=== PATIENT | female | born 2000 | race Caucasian/White ===

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

== ENCOUNTER 2021-03-26 20:30 | Emergency (ER) | payer OTHER ==
[~2021-03-26] VITALS: Ht 162.6 cm; Wt 81.3 kg
[~2021-03-26 20:30] MED LIST changes: +ULTRAM50 M1 PO
[2021-03-26] MEDS ORDERED: BACTRIM DS1 TAB PO (21:36)
[2021-03-26] MEDS ORDERED: NAPROXEN XX (21:37)
[2021-03-26] MEDS ORDERED: CLINDAMYCIN300 M1 PO (22:26)
[2021-03-26] MEDS ORDERED: PERCOCET 5/325M1 TAB PO (22:26)
[2021-03-26 22:47] VITALS: BP 122/71
== END 2021-03-26 22:47 | disposition home or self-care (01) ==
LOC: ED 20:30
DX: L02.213 Cutaneous abscess of chest wall (principal)

== ENCOUNTER 2021-06-13 14:34 | Emergency (ER) | payer OTHER ==
[~2021-06-13] VITALS: Ht 162.6 cm; Wt 75.0 kg
[~2021-06-13 14:34] MED LIST changes: +BACTRIM DS1 TAB PO; +CLINDAMYCIN300 M1 PO; +NAPROXEN XX; +PERCOCET 5/325M1 TAB PO
[2021-06-13 16:20] LABS: HEMATOCRIT 46.7 % (37.0-47.0); HEMOGLOBIN 15.3 g/dl (12.0-16.0); IMMATURE GRANULOCYTES 0.1 % (0.0-5.0); MEAN CELL VOLUME 81.1 fL CALC (80.0-100.0); MEAN CORPUSCULAR HGB 26.6 pG CALC (26.0-32.0); MEAN CORPUSCULAR HGB CONC 32.8 g/dL CAL (32.0-36.0); NEUT# 5.98 thou/uL (2.00-7.15); RED BLOOD COUNT 5.76 mill/uL (4.20-5.60); RED CELL DISTRI WIDTH 12.6 % (11.5-15.5)
[2021-06-13 16:35] LABS: ALKALINE PHOSPHATASE 67 u/l (38-126); AMYLASE 80 u/l (30-110); BUN 6 mg/dL (7-17); BUN/CREATININE RATIO 8 (12-20 (CALC)); CHLORIDE 102 mmol/l (95-108); CREATININE 0.7 mg/dL (0.5-1.0); GFR > 60 ML/MIN (>=60 (CALC)); GFR FOR AFR.AMER. > 60 ML/MIN (>=60 (CALC)); LIPASE 50 u/l (23-300); POTASSIUM 3.9 mmol/l (3.5-5.1); SGOT/AST 24 u/l (14-36); TOTAL PROTEIN 8.5 g/dL (6.3-8.2)
[2021-06-13 16:36] LABS: ANION GAP 22 (6-22 (CALC)); BILIRUBIN, TOTAL 0.7 mg/dL (0.0-1.4); CARBON DIOXIDE 14 mmol/l (22-30); SODIUM 134 mmol/l (137-146)
[2021-06-13] MEDS ORDERED: ONDANSETRON4 MG PO (17:44)
[2021-06-13 17:47] VITALS: BP 133/80
== END 2021-06-13 18:03 | disposition home or self-care (01) ==
LOC: ED 14:34
PROVIDERS: Emergency Medicine
DX: O21.0 Mild hyperemesis gravidarum (principal); Z3A.01 Less than 8 weeks gestation of pregnancy; Z20.822 Contact with and (suspected) exposure to COVID-19

== ENCOUNTER 2022-03-05 16:54 | Emergency (ER) | payer OTHER ==
[~2022-03-05] VITALS: Ht 162.6 cm; Wt 68.1 kg
[~2022-03-05 16:54] MED LIST changes: +ONDANSETRON4 MG PO
[2022-03-05 17:42] VITALS: BP 129/81
[2022-03-05] MEDS ORDERED: AMOX/K CLAV875 M1 PO (18:00)
== END 2022-03-05 19:00 | disposition home or self-care (01) ==
LOC: ED 16:54
DX: K08.89 Other specified disorders of teeth and supporting structures (principal)